=== PATIENT | female | born 1985 | race African-American/Black ===

== ENCOUNTER 2016-07-12 15:42 | Emergency (ER) | payer SELFPAY ==
--- NOTE | 2016-07-13 01:34 | ED CLINICAL REPORT ---
Clinical Report - Physicians/Mid Levels [facility] [address] [place] [address] 07/12/2016 15:42 Patient: EDEN SKY Time Seen: 1615 PM. Arrived- By ambulance. Historian- patient. Referred by patient's friend ( notified-pt agreed to go voluntarily). CPT: ER phys charges level 4 (#[id number]). HISTORY OF PRESENT ILLNESS Chief Complaint: DEPRESSED and SUICIDAL THOUGHTS. This started 2 days ago. The patient has experienced situational problems. She is non-compliant with medication (off meds past month or so). Has been depressed and had suicidal thoughts. The symptoms are described as severe. No injury is present. Similar symptoms previously: REVIEW OF SYSTEMS No headache, chest pain, vomiting, diarrhea or fever. No sore throat, cough, difficulty breathing, skin rash or enlarged lymph nodes. No joint pain. PAST HISTORY See nurses notes. Depression. Prior suicide attempt. No history of hypertension or diabetes mellitus. Psychiatric illness. No history of alcoholism. Medications: Ventolin HFA Inhalation. Allergies: Fluoxetine. Wellbutrin. SOCIAL HISTORY Light tobacco smoker (cigarette)- less than 1/2 a pack per day. Occasional alcohol use. History of occasional drug use: marijuana. Has place to stay. ADDITIONAL NOTES The nursing notes have been reviewed. PHYSICAL EXAM Vital Signs: 07/12/2016 16:05 BP: 132/77. HR: 71. RR: 16. O2 saturation: 100%. Temp: 98.3 F. Have been reviewed and appear to be correct. Appearance: Alert. No acute distress. Appearance is normal. Eyes: Pupils equal, round and reactive to light. Neck: Normal inspection. CVS: Normal heart rate and rhythm. Heart sounds normal. Respiratory: Breath sounds normal. Chest nontender. Abdomen: Soft and nontender. Skin: Skin warm and dry. Normal skin color. Normal skin turgor. Extremities: Extremities exhibit normal ROM. Psych / Neuro: Oriented X 3. Appears depressed. Flat affect. Speech normal. She does not exhibit altered thought processes. No apparent hallucinations. She expresses suicidal thoughts. Insight and judgement normal. Cranial nerves normal (as tested). No cerebellar findings. No motor deficit. No sensory deficit. LABS, X-RAYS, AND EKG Laboratory Tests: Laboratory tests have been ordered, with results reviewed and considered in the medical decision making process. Urine Drug Screen: (LUNA: 07/12/2016 16:50) ( MsgRcvd 07/12/2016 17:43) Final results Test Result Flag Units (Reference) AMPHETAMINE/METHAMPHETAMINE NEGATIVE (NEGATIVE) BARBITURATE NEGATIVE (NEGATIVE) BENZODIAZEPINE NEGATIVE (NEGATIVE) CANNABINOID NEGATIVE (NEGATIVE) COCAINE NEGATIVE (NEGATIVE) ECSTASY NEGATIVE (NEGATIVE) METHADONE NEGATIVE (NEGATIVE) OPIATE NEGATIVE (NEGATIVE) The urine drug screen is a qualitative screening test fordrug overdose and abuse. All screen results should beconsidered as presumptive.Drugs screened for are as follows:BenzodiazepinesCocaineAmphetamines/MetamphetaminesTHC (Tetrahydrocannabinol)OpiatesBarbituratesEcstasyMethadonePositive results are unconfirmed. For confirmation, notifythe lab for the specimen to be sent to the reference lab.All confirmations must be performed by a differentmethodology.The ingestion of natural herbal and plant productscontaining Ephedra/Ephedra metabolites can produce in urineone or more substances capable of cross reacting withamphetamine/methamphetamine immunoassays. These testsprovide a preliminary result only. A more specificalternative chemical method must be used to obtain aconfirmed analytical result. . PROGRESS AND PROCEDURES Course of Care: 18:17 07/12/16. Medically fit for psych treatment UDS and breathalyzer are both negative PAT team requested w/ ETA 2200 21:54 07/12/16. still awaiting PAT team-pt has remained calm and cooperative in room 23:59 07/12/16. Report to Dr. Porter. Pt has been seen by PAT team; awaiting determ crisis bed Bed obtained and facility is requesting mild sedative for anxiety. Xanax 0.25 mg po Pt to be transferred. Patient is stable. Patient/family counseled. Disposition: Transferred. [facility]. CLINICAL IMPRESSION Personality disorder (borderline) Major depressive disorder. (Electronically signed by Stanley Porter MD 07/15/2016 23:03)
--- NOTE | 2016-07-13 01:34 | ED ORDER SUMMARY ---
..... Patient: EDEN SKY OrderSheet [facility] VisitID: [id number] [place] [address] 30y, F Registration Date/Time: 07/12/2016 ORDER SHEET Weight: 81.6 kg Allergies: Fluoxetine, Wellbutrin GENERAL ORDERS: Urine Drug Screen Urgent (16:24 07/12/2016 SThom A.R.N.P.) (Ack 16:25 TBergley) (16:26 [facility]) Breathalyzer (16:24 07/12/2016 SThom A.R.N.P.) (Ack 16:25 TBergley) (17:02 TBergley) MEDICATION ORDERS: Alprazolam PO 0.25 mg (NOW) (01:44 07/13/2016 Ryan EDMOND) (Ack 1:58 RMarsnatty R.N.) (2:08 RMjulian R.N.) IV FLUIDS: ORDER SHEET NOTES: [Electronically signed by Radha Helton R.N. (05:55 07/13/2016)] [Electronically signed by Stanley Porter MD (23:03 07/15/2016)] [Electronically locked/signed by Radha Helton R.N. (05:55 07/13/2016)]
--- NOTE | 2016-07-13 01:34 | ED NURSING NOTES ---
Clinical Report - Nurses [facility] [place] [address] 07/12/2016 15:42 Patient: EDEN SKY TRIAGE Triage time 1550. Acuity: LEVEL 2. Chief Complaint: DEPRESSION and SUICIDAL THOUGHTS. Alert. --16:00 Ivelisse Maria 15:54 07/12/16. Pain level now 08/01. --16:00 Ivelisse Maria 16:05 07/12/16. BP: 132/77. HR: 71. RR: 16. O2 saturation: 100%. Temp: 98.3 F. --16:05 Ivelisse Maria. Weight: 81.6 kg. Height/Length: 62 inches. BMI: 32.9. --15:53 Ivelisse Maria. Medications Ventolin HFA Inhalation. --15:55 Ivelisse Maria. Allergies Fluoxetine. --15:56 Ivelisse Maria Wellbutrin. --15:56 Ivelisse Maria. History Arrived by EMS. Historian: EMS and patient. Unaccompanied. Onset: yesterday. ( Pt feeling depression getting much worse, yesterday with suicidal ideation, denies any now however, pt sts she needs help and is severely depressed and needs on meds). She has had sleeping difficulties. 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 See EMS report. SOCIAL HX: Light tobacco smoker (cigarette)- less than 1/2 a pack per day. Occasional alcohol use. History of drug use: marijuana. SELF HARM ASSESSMENT: A self harm assessment was performed. The patient answered "yes" to the question "Have you recently felt down, depressed, or hopeless?", "Have you noticed less interest or pleasure in doing things?", "Do you have thoughts of harming or killing yourself?", "Are you here because you tried to hurt yourself?" and "Have you ever tried to hurt yourself before today?" and "no" to the question "Have you recently had thoughts about harming or killing others?" and "Do you have any dangerous items in your possession?". The friend and EMS reported the patient's behavior included suicidal comments and as withdrawn. In the ED the patient has been agitated and anxious. She has been placed under continuous supervision. She was placed in a safe room in direct sight of the nurses station. Clothes and valuables were removed and placed at the nurses station. The ED physician has been notified. FALL RISK ASSESSMENT: Fall risk assessment completed. No fall risk identified. NUTRITIONAL RISK ASSESSMENT: The nutritional risk assessment revealed no deficiencies. FUNCTIONAL ASSESSMENT: Functional assessment: no impairments noted. LEARNING NEEDS ASSESSMENT: The learning needs assessment revealed no barriers. SKIN INTEGRITY ASSESSMENT: Skin integrity risk assessment completed. No skin integrity risk identified. --16:00 Ivelisse Maria. PROBLEMS: Anxiety Reaction. Asthma. Depression. --15:56 Ivelisse Maria. ADDITIONAL SURGERIES: Appendectomy. --15:56 Ivelisse Maria. Interventions ID band on patient. To treatment room. --16:00 Ivelisse Maria. PHYSICAL ASSESSMENT To room via stretcher. Patient gowned. GENERAL / NEURO / PSYCH: Alert. Oriented X 4. Appears in distress. Speech within normal limits. Affect appears normal. Patient appears calm and cooperative. Good eye contact. Patient appears well-nourished and unkempt. RESPIRATORY: Respirations not labored. Breath sounds within normal limits. CVS: Normal heart rate and rhythm. Capillary refill less than 2 seconds. GI / : Abdomen soft and nontender. Bowel sounds within normal limits. SKIN: Skin intact. Skin is warm and dry. Skin color is within normal limits. --16:01 Ivelisse Maria. NURSING PROGRESS NOTES Reassurance given. Suicide precautions initiated. Bed placed in lowest position. Brakes of bed on. Patient ready for evaluation- chart flagged. --16:01 Ivelisse Maria 17:03 07/12/16. ( breathalyzer resulted .000.). --17:03 Serena Rivas Patient informed about reason for wait. Patient waiting for evaluation. ( Pt given food and drink and explained that no one could come from PAT team until after 10pm, pt frustrated but sts understanding). --18:28 Ivelisse Maria ( Pt resting quietly, on phone and watching TV, pt given more food and things to drink, pt sts she is doing fine, no new needs). --20:27 Ivelisse Maria Care transferred and report received (from EVY Oviedo). --22:33 Radha Helton R.N. 00:24 07/13/16. BP: 118/72. HR: 67. RR: 15. O2 saturation: 98%. Temp: deferred. Pain level now: 0/10. --00:25 Radha Helton R.N. 02:08 07/13/2016 Alprazolam PO Tablets 0.25 mg given. Allergies verified, confirmed 5 rights and sedative warning given to the patient. --02:08 Radha Helton R.N. 02:10 07/13/16. BP: 117/75 taken on the left arm, while sitting. HR: 77. RR: 16. O2 saturation: 98%. Temp: 97.9 F. Pain level now: 010. --02:11 Radha Helton R.N. DISPOSITION / DISCHARGE Transferred ([facility]). Transported via by transport team. Report was given in person. Report included patient's care, treatment, medications, reviewed medication reconcilliation, and condition (including any recent changes or anticipated changes). No questions were asked. Report was acknowledged and care was transferred. (to transport team). Patient's personal items include, given to transport team; items were placed in belongings bag and transported with the patient. --02:41 Radha Helton R.N. 02:10 07/13/16. BP: 117/75 taken on the left arm, while sitting. HR: 77. RR: 16. O2 saturation: 98%. Temp: 97.9 F. Pain level now: 0/10. --02:41 Radha Helton R.N. Departure time: :. --02:41 Radha Helton R.N. Locked/Released at 07/13/2016 5:55 by Radha Helton R.N.
--- NOTE | 2016-07-13 01:34 | ED CLINICAL REPORT ---
Clinical Report - Physicians/Mid Levels [facility] [address] [place] [address] 07/12/2016 15:42 Patient: EDEN SKY Time Seen: 1615 PM. Arrived- By ambulance. Historian- patient. Referred by patient's friend ( notified-pt agreed to go voluntarily). CPT: ER phys charges level 4 (#[id number]). HISTORY OF PRESENT ILLNESS Chief Complaint: DEPRESSED and SUICIDAL THOUGHTS. This started 2 days ago. The patient has experienced situational problems. She is non-compliant with medication (off meds past month or so). Has been depressed and had suicidal thoughts. The symptoms are described as severe. No injury is present. Similar symptoms previously: REVIEW OF SYSTEMS No headache, chest pain, vomiting, diarrhea or fever. No sore throat, cough, difficulty breathing, skin rash or enlarged lymph nodes. No joint pain. PAST HISTORY See nurses notes. Depression. Prior suicide attempt. No history of hypertension or diabetes mellitus. Psychiatric illness. No history of alcoholism. Medications: Ventolin HFA Inhalation. Allergies: Fluoxetine. Wellbutrin. SOCIAL HISTORY Light tobacco smoker (cigarette)- less than 1/2 a pack per day. Occasional alcohol use. History of occasional drug use: marijuana. Has place to stay. ADDITIONAL NOTES The nursing notes have been reviewed. PHYSICAL EXAM Vital Signs: 07/12/2016 16:05 BP: 132/77. HR: 71. RR: 16. O2 saturation: 100%. Temp: 98.3 F. Have been reviewed and appear to be correct. Appearance: Alert. No acute distress. Appearance is normal. Eyes: Pupils equal, round and reactive to light. Neck: Normal inspection. CVS: Normal heart rate and rhythm. Heart sounds normal. Respiratory: Breath sounds normal. Chest nontender. Abdomen: Soft and nontender. Skin: Skin warm and dry. Normal skin color. Normal skin turgor. Extremities: Extremities exhibit normal ROM. Psych / Neuro: Oriented X 3. Appears depressed. Flat affect. Speech normal. She does not exhibit altered thought processes. No apparent hallucinations. She expresses suicidal thoughts. Insight and judgement normal. Cranial nerves normal (as tested). No cerebellar findings. No motor deficit. No sensory deficit. LABS, X-RAYS, AND EKG Laboratory Tests: Laboratory tests have been ordered, with results reviewed and considered in the medical decision making process. Urine Drug Screen: (LUNA: 07/12/2016 16:50) ( MsgRcvd 07/12/2016 17:43) Final results Test Result Flag Units (Reference) AMPHETAMINE/METHAMPHETAMINE NEGATIVE (NEGATIVE) BARBITURATE NEGATIVE (NEGATIVE) BENZODIAZEPINE NEGATIVE (NEGATIVE) CANNABINOID NEGATIVE (NEGATIVE) COCAINE NEGATIVE (NEGATIVE) ECSTASY NEGATIVE (NEGATIVE) METHADONE NEGATIVE (NEGATIVE) OPIATE NEGATIVE (NEGATIVE) The urine drug screen is a qualitative screening test fordrug overdose and abuse. All screen results should beconsidered as presumptive.Drugs screened for are as follows:BenzodiazepinesCocaineAmphetamines/MetamphetaminesTHC (Tetrahydrocannabinol)OpiatesBarbituratesEcstasyMethadonePositive results are unconfirmed. For confirmation, notifythe lab for the specimen to be sent to the reference lab.All confirmations must be performed by a differentmethodology.The ingestion of natural herbal and plant productscontaining Ephedra/Ephedra metabolites can produce in urineone or more substances capable of cross reacting withamphetamine/methamphetamine immunoassays. These testsprovide a preliminary result only. A more specificalternative chemical method must be used to obtain aconfirmed analytical result. . PROGRESS AND PROCEDURES Course of Care: 18:17 07/12/16. Medically fit for psych treatment UDS and breathalyzer are both negative PAT team requested w/ ETA 2200 21:54 07/12/16. still awaiting PAT team-pt has remained calm and cooperative in room 23:59 07/12/16. Report to Dr. Porter. Pt has been seen by PAT team; awaiting determ crisis bed Bed obtained and facility is requesting mild sedative for anxiety. Xanax 0.25 mg po Pt to be transferred. Patient is stable. Patient/family counseled. Disposition: Transferred. [facility]. CLINICAL IMPRESSION Personality disorder (borderline) Major depressive disorder. (Electronically signed by Stanley Porter MD 07/15/2016 23:03)
--- NOTE | 2016-07-13 01:34 | ED NURSING NOTES ---
Clinical Report - Nurses [facility] [place] [address] 07/12/2016 15:42 Patient: EDEN SKY TRIAGE Triage time 1550. Acuity: LEVEL 2. Chief Complaint: DEPRESSION and SUICIDAL THOUGHTS. Alert. --16:00 Ivelisse Maria 15:54 07/12/16. Pain level now 08/01. --16:00 Ivelisse Maria 16:05 07/12/16. BP: 132/77. HR: 71. RR: 16. O2 saturation: 100%. Temp: 98.3 F. --16:05 Ivelisse Maria. Weight: 81.6 kg. Height/Length: 62 inches. BMI: 32.9. --15:53 Ivelisse Maria. Medications Ventolin HFA Inhalation. --15:55 Ivelisse Maria. Allergies Fluoxetine. --15:56 Ivelisse Maria Wellbutrin. --15:56 Ivelisse Maria. History Arrived by EMS. Historian: EMS and patient. Unaccompanied. Onset: yesterday. ( Pt feeling depression getting much worse, yesterday with suicidal ideation, denies any now however, pt sts she needs help and is severely depressed and needs on meds). She has had sleeping difficulties. 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 See EMS report. SOCIAL HX: Light tobacco smoker (cigarette)- less than 1/2 a pack per day. Occasional alcohol use. History of drug use: marijuana. SELF HARM ASSESSMENT: A self harm assessment was performed. The patient answered "yes" to the question "Have you recently felt down, depressed, or hopeless?", "Have you noticed less interest or pleasure in doing things?", "Do you have thoughts of harming or killing yourself?", "Are you here because you tried to hurt yourself?" and "Have you ever tried to hurt yourself before today?" and "no" to the question "Have you recently had thoughts about harming or killing others?" and "Do you have any dangerous items in your possession?". The friend and EMS reported the patient's behavior included suicidal comments and as withdrawn. In the ED the patient has been agitated and anxious. She has been placed under continuous supervision. She was placed in a safe room in direct sight of the nurses station. Clothes and valuables were removed and placed at the nurses station. The ED physician has been notified. FALL RISK ASSESSMENT: Fall risk assessment completed. No fall risk identified. NUTRITIONAL RISK ASSESSMENT: The nutritional risk assessment revealed no deficiencies. FUNCTIONAL ASSESSMENT: Functional assessment: no impairments noted. LEARNING NEEDS ASSESSMENT: The learning needs assessment revealed no barriers. SKIN INTEGRITY ASSESSMENT: Skin integrity risk assessment completed. No skin integrity risk identified. --16:00 Ivelisse Maria. PROBLEMS: Anxiety Reaction. Asthma. Depression. --15:56 Ivelisse Maria. ADDITIONAL SURGERIES: Appendectomy. --15:56 Ivelisse Maria. Interventions ID band on patient. To treatment room. --16:00 Ivelisse Maria. PHYSICAL ASSESSMENT To room via stretcher. Patient gowned. GENERAL / NEURO / PSYCH: Alert. Oriented X 4. Appears in distress. Speech within normal limits. Affect appears normal. Patient appears calm and cooperative. Good eye contact. Patient appears well-nourished and unkempt. RESPIRATORY: Respirations not labored. Breath sounds within normal limits. CVS: Normal heart rate and rhythm. Capillary refill less than 2 seconds. GI / : Abdomen soft and nontender. Bowel sounds within normal limits. SKIN: Skin intact. Skin is warm and dry. Skin color is within normal limits. --16:01 Ivelisse Maria. NURSING PROGRESS NOTES Reassurance given. Suicide precautions initiated. Bed placed in lowest position. Brakes of bed on. Patient ready for evaluation- chart flagged. --16:01 Ivelisse Maria 17:03 07/12/16. ( breathalyzer resulted .000.). --17:03 Serena Rivas Patient informed about reason for wait. Patient waiting for evaluation. ( Pt given food and drink and explained that no one could come from PAT team until after 10pm, pt frustrated but sts understanding). --18:28 Ivelisse Maria ( Pt resting quietly, on phone and watching TV, pt given more food and things to drink, pt sts she is doing fine, no new needs). --20:27 Ivelisse Maria Care transferred and report received (from EVY Oviedo). --22:33 Radha Helton R.N. 00:24 07/13/16. BP: 118/72. HR: 67. RR: 15. O2 saturation: 98%. Temp: deferred. Pain level now: 0/10. --00:25 Radha Helton R.N. 02:08 07/13/2016 Alprazolam PO Tablets 0.25 mg given. Allergies verified, confirmed 5 rights and sedative warning given to the patient. --02:08 Radha Helton R.N. 02:10 07/13/16. BP: 117/75 taken on the left arm, while sitting. HR: 77. RR: 16. O2 saturation: 98%. Temp: 97.9 F. Pain level now: 010. --02:11 Radha Helton R.N. DISPOSITION / DISCHARGE Transferred ([facility]). Transported via by transport team. Report was given in person. Report included patient's care, treatment, medications, reviewed medication reconcilliation, and condition (including any recent changes or anticipated changes). No questions were asked. Report was acknowledged and care was transferred. (to transport team). Patient's personal items include, given to transport team; items were placed in belongings bag and transported with the patient. --02:41 Radha Helton R.N. 02:10 07/13/16. BP: 117/75 taken on the left arm, while sitting. HR: 77. RR: 16. O2 saturation: 98%. Temp: 97.9 F. Pain level now: 0/10. --02:41 Radha Helton R.N. Departure time: :. --02:41 Radha Helton R.N. Locked/Released at 07/13/2016 5:55 by Radha Helton R.N.
--- NOTE | 2016-07-13 01:34 | ED ORDER SUMMARY ---
..... Patient: EDEN SKY OrderSheet [facility] VisitID: [id number] [place] [address] 30y, F Registration Date/Time: 07/12/2016 ORDER SHEET Weight: 81.6 kg Allergies: Fluoxetine, Wellbutrin GENERAL ORDERS: Urine Drug Screen Urgent (16:24 07/12/2016 SThom A.R.N.P.) (Ack 16:25 TBergley) (16:26 [facility]) Breathalyzer (16:24 07/12/2016 SThom A.R.N.P.) (Ack 16:25 TBergley) (17:02 TBergley) MEDICATION ORDERS: Alprazolam PO 0.25 mg (NOW) (01:44 07/13/2016 Ryan EDMOND) (Ack 1:58 RMarsnatty R.N.) (2:08 RMjulian R.N.) IV FLUIDS: ORDER SHEET NOTES: [Electronically signed by Radha Helton R.N. (05:55 07/13/2016)] [Electronically signed by Stanley Porter MD (23:03 07/15/2016)] [Electronically locked/signed by Radha Helton R.N. (05:55 07/13/2016)]
--- NOTE | 2016-07-15 23:03 | ED MAR SUMMARY ---
..... Medication Administration Record [facility] [address] [place] [address] Patient: EDEN SKY Visit ID: [id number] 30y, F Weight: 81.6 kg Height/Length: 62 in BMI: 32.9 ALLERGIES: Wellbutrin, Fluoxetine Given 02:08 07/13/2016 Radha Helton RMargaret Medication Administered: ALPRAZOLAM [PO], Dose: 0.25 mg Tablets PO. Medication Ordered: Alprazolam PO 0.25 mg (NOW).
--- NOTE | 2016-07-15 23:03 | ED DISCHARGE INSTRUCTIONS ---
Patient: EDEN SKY General Instructions [facility] VisitID: [id number] [place] [address] 30y, F Registration Date/Time: 07/12/2016 Personality disorder (borderline) Major depressive disorder. ADDITIONAL INFORMATION Depression Depression is one of the most common mental health problems today. It is not just a state of unhappiness or sadness. It is a true disease. The cause seems to be related to a decrease in chemicals that transmit signals in the brain. Having a family history of depression, alcoholism or suicide increases the risk. Chronic illness, chronic pain, migraine headaches and high emotional stress also increase the risk. Depression can cause many different symptoms, such as: -- Loss of appetite -- Over-eating -- Not being able to sleep -- Sleeping too much -- Tiredness not related to physical exertion -- Restlessness or irritability -- Slowness of movement or speech -- Feeling depressed or withdrawn -- Loss of interest in things you once enjoyed -- Difficulty in concentrating, poor memory, have trouble making decisions -- Thoughts of harming or killing oneself, or thoughts that life is not worth living -- Low self-esteem The best treatment for depression is a combination of medicine and psychotherapy. Antidepressant medicines can reduce suffering and can improve the ability to function during the depressed period. Therapy can offer emotional support and help you understand emotional factors that may be causing the depression. Home Care: 1) Be kind to yourself. Make it a point to do things that you enjoy (gardening, walking in nature, going to a movie, etc.). Reward yourself for small successes. 2) Take care of your physical body. Eat a balanced diet (low in saturated fat and high in fruits and vegetables). Establish an exercise plan at least 3 times a week for 30 minutes. Even mild-moderate exercise (like brisk walking) can make you feel better. 3) Avoid alcohol, which can make depression worse. Follow-Up with your doctor as advised. It is important to keep in contact with a health care provider until your symptoms begin to improve. Get Prompt Medical Attention if any of the following occur: -- Feeling extreme depression, fear, anxiety, or anger toward yourself or others -- Feeling out of control -- Feeling that you may try to harm yourself or another -- Hearing voices that others do not hear -- Seeing things that others do not see -- Cant sleep or eat for 3 days in a row Personality Disorder The diagnosis Personality Disorder refers to a pattern of thinking, feeling or behaving. This affects how you feel about yourself, your relationships with others and your ability to control your own urges. These patterns of personality usually first appear in adolescence. A personality disorder is not a true illness. It is a label given for ways of living that cause distress for you and/or those you relate to. For example, you may blame others for your problems. You may believe that you cannot control what happens in your life. There may be difficulty seeing another persons point of view. There may be a lack of concern for how others are feeling. These patterns of seeing the world may lead to unhappiness, anxiety or depression. Therapy and medicines can help. But to get better, you must want to change your life and the old ways of behaving. No one can do this for you. This means changing the way you think about yourself and others and changing the ways you act. With a support system (therapist, group support, friends, family) it is possible to heal and learn a healthier more fulfilling way of living. Home Care If medicines have been prescribed, take them as directed. If you were referred to a therapist, counselor or psychiatrist, make the appointment and keep it. Follow Up with your doctor, therapist, or mental health provider as advised by our staff. For more information: See Jess Sutherland article at [facility] [email or web address] Get Prompt Medical Attention if any of the following occur: Feeling extreme depression, fear, anxiety, or anger toward yourself or others Feeling out of control Feeling that you may try to harm yourself or another Hearing voices that others do not hear Seeing things that others do not see Unable to sleep or eat for 3 days in a row You have been given the following additional information: Depression Personality Disorder (Electronically signed by Stanley Porter MD 07/15/2016 23:03)
--- NOTE | 2016-07-15 23:03 | ED MAR SUMMARY ---
..... Medication Administration Record [facility] [address] [place] [address] Patient: EDEN SKY Visit ID: [id number] 30y, F Weight: 81.6 kg Height/Length: 62 in BMI: 32.9 ALLERGIES: Wellbutrin, Fluoxetine Given 02:08 07/13/2016 Radha Helton RMargaret Medication Administered: ALPRAZOLAM [PO], Dose: 0.25 mg Tablets PO. Medication Ordered: Alprazolam PO 0.25 mg (NOW).
--- NOTE | 2016-07-15 23:04 | ED MED RECONCILIATION SUMMARY ---
Patient: EDEN SKY Medication Reconciliation Report [facility] VisitID: [id number] [address] [place] [address] 30y, F Registration Date/Time: 07/12/2016 Weight: 81.6 kg Height/Length: 62 in. BMI: 32.9 ALLERGIES: Fluoxetine, Wellbutrin The patient's Home Medications are listed below: THE FOLLOWING MEDICATIONS NEED TO BE RECONCILED: Ventolin HFA Inhalation The source(s) of the original Home Medication information: Not obtained. The following Medications were given to the patient in the Emergency Department: Alprazolam [PO] PO 0.25 mg, administered: 07/13/2016 2:08:00 AM The following Medications were prescribed to the patient: None.
--- NOTE | 2016-07-15 23:04 | ED MED RECONCILIATION SUMMARY ---
Patient: EDEN SKY Medication Reconciliation Report [facility] VisitID: [id number] [address] [place] [address] 30y, F Registration Date/Time: 07/12/2016 Weight: 81.6 kg Height/Length: 62 in. BMI: 32.9 ALLERGIES: Fluoxetine, Wellbutrin The patient's Home Medications are listed below: THE FOLLOWING MEDICATIONS NEED TO BE RECONCILED: Ventolin HFA Inhalation The source(s) of the original Home Medication information: Not obtained. The following Medications were given to the patient in the Emergency Department: Alprazolam [PO] PO 0.25 mg, administered: 07/13/2016 2:08:00 AM The following Medications were prescribed to the patient: None.
== END 2016-07-13 02:41 | disposition other institution (70) ==
LOC: ED SRH 15:42
DX: F32.9 Major depressive disorder, single episode, unspecified (principal); F60.3 Borderline personality disorder; J45.909 Unspecified asthma, uncomplicated; Z79.899 Other long term (current) drug therapy; F17.210 Nicotine dependence, cigarettes, uncomplicated; Z88.8 Allergy status to other drugs, medicaments and biological substances
CPT/HCPCS: 92760; 92761; 92762; 92763; 92764; 92765; 92766; 92767